=== PATIENT | female | born 1960 | race Hispanic/Latino ===

== ENCOUNTER → 2019-10-18 | Day surgery (SDC) | payer BC, OTHER ==
[~2019-10-18] MED LIST: FENTANYL CITRATE/PF 100MCG/2 ML INJ ONE; LIDOCAINE HCL 2% LOCAL INJ 5 ML SDV VIAL INJ ONE; MIDAZOLAM HCL 2 MG/2 ML VIAL ONE; NAPROXEN250 MG PO; PROPOFOL IV EMULSION 10 MG/ML 20 ML VIAL ONE
--- NOTE | 2019-10-18 08:16 | Operative Report ---
DATE OF PROCEDURE: SURGEON: Archie Cam MD INDICATION: Asha is a pleasant 59-year-old female with episode of hematemesis, dyspepsia, here for an EGD, rule out peptic ulcer disease, esophagitis and upper GI neoplasm. DESCRIPTION OF PROCEDURE: After informed and written consent, premedications with monitored anesthesia care, standard adult video Olympus gastroscope was introduced into the mouth, esophagus, stomach into the 2nd portion of the duodenum. First and 2nd portion of the duodenum appeared to be normal. Antrum showed gastritis and biopsies were done. Body, fundus appeared to be unremarkable. Retroflexion revealed a very small hiatal hernia. There is mild esophagitis at the GE junction and biopsies were done. There were some superficial ulcerations noted in the lower and mid esophagus and biopsies were done. IMPRESSION: Esophageal ulcers, hiatal hernia, esophagitis, gastritis. RECOMMENDATION: B.i.d. PPI, weight reduction. Consider gastric bypass. Further recommendations will be based on patient's clinical course. Archie Cam MD SR/MODL /[id number]
[2019-10-18 08:25] VITALS: BP 132/90
== END | disposition home or self-care (01) ==
LOC: OR 05:40
PROVIDERS: ATTEND Internal Medicine Gastroenterology
DX: K29.70 Gastritis, unspecified, without bleeding (principal); K22.10 Ulcer of esophagus without bleeding; K31.89 Other diseases of stomach and duodenum; K44.9 Diaphragmatic hernia without obstruction or gangrene; E66.01 Morbid (severe) obesity due to excess calories; Z91.041 Radiographic dye allergy status; Z01.810 Encounter for preprocedural cardiovascular examination; Z01.812 Encounter for preprocedural laboratory examination; Z11.59 Encounter for screening for other viral diseases; Z68.41 Body mass index [BMI] 40.0-44.9, adult
CPT/HCPCS: 43239; 87635; 93005; J2001; J2250; J2704; J3010

== ENCOUNTER 2021-03-15 12:19 | Emergency (ER) | payer BC ==
[~2021-03-15] VITALS: Ht 152.4 cm; Wt 108.9 kg
[~2021-03-15 12:19] MED LIST changes: -FENTANYL CITRATE/PF 100MCG/2 ML INJ ONE; -LIDOCAINE HCL 2% LOCAL INJ 5 ML SDV VIAL INJ ONE; -MIDAZOLAM HCL 2 MG/2 ML VIAL ONE; -PROPOFOL IV EMULSION 10 MG/ML 20 ML VIAL ONE
[2021-03-15] MEDS ORDERED: SODIUM CHLORIDE 0.9% 1000ML 1,000 ML IV STA (12:30)
[2021-03-15] MEDS ORDERED: Morphine 4mg Syringe 4 MG/ML INJ IV NR (12:30)
[2021-03-15] MEDS ORDERED: ONDANSETRON HCL INJ 2MG/ML 2ML 2 MG/ML VIAL IV NR (12:30)
[2021-03-15] MEDS ORDERED: DIPHENHYDRAMINE HCL INJ 50 MG/ML VIAL IV NR (12:30)
[2021-03-15] MEDS ORDERED: METHYLPREDNISOLONE SOD SUCC 125 MG/2ML VIAL IV STA (12:30)
[2021-03-15] MEDS ORDERED: LABETALOL HCL 5 MG/ML 20ML VIAL IV NR (12:30)
[2021-03-15 13:32] LABS: BASOPHILS # (AUTO) 0.1 (0.0-0.1); BASOPHILS % 0.6 % (0.0-1.0); EOSINOPHILS # (AUTO) 0.2 (0.0-0.4); EOSINOPHILS % 1.4 % (0.0-6.0); HEMATOCRIT 45.5 % (34.2-44.1); HEMOGLOBIN 15.1 g/dL (12.0-16.0); LYMPHOCYTES # (AUTO) 4.4 (1.0-3.2); LYMPHOCYTES % 32.7 % (18.0-39.1); MEAN CORPUSCULAR HGB CONC 33.2 g/dL (31-35); MEAN CORPUSCULAR VOLUME 90.5 fL (81-99); MONOCYTES # (AUTO) 1.1 (0.2-0.8); MONOCYTES % 7.9 % (4.4-11.3); NEUTROPHILS # (AUTO) 7.7 (2.1-6.9); PLATELET COUNT 402 x10e3/uL (140-360); RED BLOOD COUNT 5.03 x10e6/uL (3.6-5.1); RED CELL DISTRIBUTION WIDTH 14.2 % (11.7-14.4)
[2021-03-15 13:45] LABS: INR 0.96; PROTHROMBIN TIME 13.5 seconds (11.9-14.5)
[2021-03-15 13:46] LABS: PARTIAL THROMBOPLASTIN TIME 26.2 seconds (23.8-35.5)
[2021-03-15 13:52] LABS: ALBUMIN 3.9 g/dL (3.5-5.0); ANION GAP 17.1 mmol/L (8-16); CALCIUM 9.2 mg/dL (8.4-10.2); CREATININE, SERUM 0.81 mg/dL (0.57-1.11); POTASSIUM 4.1 mmol/L (3.5-5.1)
[2021-03-15 13:59] LABS: CREATINE KINASE MB 1.1 ng/mL (0-5.0)
[2021-03-15 16:17] LABS: CLARITY,URINE CLEAR (CLEAR); COLOR,URINE YELLOW (YELLOW); KETONES,URINE NEGATIVE (NEGATIVE); LEUKOCYTE ESTERASE ,URINE NEGATIVE (NEGATIVE); NITRITE,URINE NEGATIVE (NEGATIVE); PROTEIN,URINE DIPSTICK NEGATIVE (NEGATIVE); URINE UROBILINOGEN 0.2 mg/dL (0.2 - 1)
[2021-03-15 16:33] LABS: EPITHELIAL CELLS,URINE FEW /LPF
[2021-03-15] MEDS ORDERED: DIPHENHYDRAMINE HCL INJ 50 MG/ML VIAL IV ONE (17:30)
[2021-03-15 19:56] VITALS: BP 140/77
== END 2021-03-15 19:45 | disposition home or self-care (01) ==
LOC: ER 12:30
DX: R10.11 Right upper quadrant pain (principal); K29.70 Gastritis, unspecified, without bleeding; R06.02 Shortness of breath; I10 Essential (primary) hypertension; Z20.822 Contact with and (suspected) exposure to COVID-19
CPT/HCPCS: 36415; 70450; 71275; 74174; 80053; 81001; 82150; 82550; 82553; 83690; 83880; 84484; 85025; 85610; 85730; 87086; 93005; 99284; J1200; J2270; J2405; J2930; J7030; U0002

== ENCOUNTER 2022-05-29 13:20 | Emergency (ER) | payer BC ==
[~2022-05-29] VITALS: Ht 152.4 cm; Wt 108.9 kg
[2022-05-29 13:43] LABS: BASOPHILS # (AUTO) 0.1 (0.0-0.1); BASOPHILS % 0.6 % (0.0-1.0); EOSINOPHILS # (AUTO) 0.1 (0.0-0.4); EOSINOPHILS % 1.1 % (0.0-6.0); HEMOGLOBIN 14.6 g/dL (12.0-16.0); LYMPHOCYTES # (AUTO) 4.2 (1.0-3.2); LYMPHOCYTES % 33.9 % (18.0-39.1); MEAN CORPUSCULAR HEMOGLOBIN 30.5 pg (28-32); MEAN CORPUSCULAR HGB CONC 31.7 g/dL (31-35); MONOCYTES # (AUTO) 0.6 (0.2-0.8); MONOCYTES % 4.9 % (4.4-11.3); NEUTROPHILS # (AUTO) 7.4 (2.1-6.9); NEUTROPHILS % 59.2 % (38.7-80.0); PLATELET COUNT 379 x10e3/uL (140-360); RED BLOOD COUNT 4.79 x10e6/uL (3.6-5.1)
[2022-05-29 14:04] LABS: ALBUMIN 3.7 g/dL (3.5-5.0); ALBUMIN/GLOBULIN RATIO 0.8 (0.8-2.0); ANION GAP 14.9 mmol/L (8-16); CALCIUM 9.4 mg/dL (8.4-10.2); CREATININE, SERUM 0.81 mg/dL (0.57-1.11); POTASSIUM 3.9 mmol/L (3.5-5.1)
[2022-05-29 14:16] LABS: LIPASE 47 U/L (8-78)
[2022-05-29] MEDS ORDERED: KETOROLAC TROMETHAMINE 30 MG/ML VIAL IM ONE (14:47)
[2022-05-29] MEDS ORDERED: NAPROXEN250 MG PO (16:39)
[2022-05-29 16:54] VITALS: BP 140/80
== END 2022-05-29 17:07 | disposition home or self-care (01) ==
LOC: ER 13:26
DX: R07.9 Chest pain, unspecified (principal); I10 Essential (primary) hypertension; Z95.5 Presence of coronary angioplasty implant and graft; R94.31 Abnormal electrocardiogram [ECG] [EKG]
CPT/HCPCS: 36415; 71045; 80053; 83690; 84484; 85025; 85379; 93005; 99284; J1885